=== PATIENT | female | born 1995 | race Caucasian/White ===

== ENCOUNTER 2018-08-10 22:27 | Emergency (ER) | payer BC, OTHER ==
[~2018-08-10] VITALS: Ht 160 cm; Wt 64.4 kg
[2018-08-10 22:27] VITALS: BP_SYST 144
[2018-08-11] MEDS ORDERED: PREDNISONE 20 MG TABLET PO ONE (03:30)
[2018-08-11] MEDS ORDERED: ACYCLOVIR 400 MG TABLET PO ONE (03:30)
[2018-08-11 03:52] VITALS: BP_SYST 144
== END 2018-08-11 03:52 | disposition home or self-care (01) ==
LOC: SED 22:27
DX: G51.0 Bell's palsy (principal); M79.7 Fibromyalgia; F32.9 Major depressive disorder, single episode, unspecified; Z90.49 Acquired absence of other specified parts of digestive tract
CPT/HCPCS: 70450; 99284; J7512